=== PATIENT | male | born 2000 | race Hispanic/Latino ===

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

== ENCOUNTER 2019-11-05 17:46 | Emergency (ER) | payer MEDICAID, OTHER ==
[2019-11-05] MEDS ORDERED: CEFTRIAXONE SODIUM 500 MG VIAL ONE (21:01)
[2019-11-05] MEDS ORDERED: METRONIDAZOLE 500 MG TABLET ONE (21:02)
[2019-11-05] MEDS ORDERED: AZITHROMYCIN 250 MG TABLET PO ONE (21:02)
[2019-11-05] MEDS ORDERED: LIDOCAINE HCL-MPF 1% 2ML VIAL ONE (21:02)
[2019-11-05] MEDS ORDERED: ONDANSETRON ODT 4 MG TAB ONE (21:03)
== END 2019-11-05 21:45 | disposition home or self-care (01) ==
LOC: EDH 17:46
DX: N34.2 Other urethritis (principal); J45.909 Unspecified asthma, uncomplicated
CPT/HCPCS: 81001; 87088; 87486; 87797; 96372; 99284; J0696; J3490

== ENCOUNTER 2023-02-12 15:08 | Emergency (ER) | payer BC ==
[~2023-02-12] VITALS: Ht 165.1 cm; Wt 74.8 kg
[2023-02-12 15:19] VITALS: BP 135/83; PULSE 68; RESP 16; O2SAT 98
[2023-02-12] MEDS ORDERED: IBUP-2070 PO (18:49)
== END 2023-02-12 19:52 | disposition home or self-care (01) ==
LOC: EDH 15:08
DX: J02.9 Acute pharyngitis, unspecified (principal); J45.909 Unspecified asthma, uncomplicated
CPT/HCPCS: 87880